=== PATIENT | female | born 2000 | race Caucasian/White ===

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

== ENCOUNTER 2022-04-02 16:14 | Emergency (ER) | payer MEDICAID ==
[~2022-04-02] VITALS: Ht 167.6 cm; Wt 59.0 kg
[2022-04-02 16:25] VITALS: BP_SYST 137
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
--- NOTE | 2022-04-02 18:41 | NUR ---
ER Dr. Hayden in triage examining patient.
[2022-04-02 19:14] VITALS: BP_SYST 132
--- NOTE | 2022-04-02 19:14 | NUR ---
Patient given written and verbal discharge instructions and verbalizes understanding. ER MD discussed with patient the results and treatment provided. Patient in stable condition. ID arm band No rx given. Patient educated on pain management and to follow up with PMD. Pain Scale 0/10 Opportunity for questions provided and answered.
== END 2022-04-02 19:14 | disposition home or self-care (01) ==
LOC: SED 16:14
DX: F41.9 Anxiety disorder, unspecified (principal); Z88.2 Allergy status to sulfonamides; Z79.899 Other long term (current) drug therapy
CPT/HCPCS: 81025; 93005; 99283